=== PATIENT | male | born 1955 | race Caucasian/White ===

== ENCOUNTER → 2017-03-11 | Outpatient (CLI) | payer MEDICARE, MEDICAID ==
[~2017-03-11] MED LIST: AMITRIPTYLINE10 MG PO; ASPIRIN CHILDRE81 M1 PO; AUGMENTIN 875 M1 TAB PO; AUGMENTIN 875-1 EACH PO; BACTRIM DS 8001 TA1 PO; CETIRIZINE10 MG PO; GABAPENTIN100 M1 PO; LORTAB 5/500 501 TAB PO; LORTAB 500 MG-71 TAB PO; MELOXICAM15 MG PO; MUPIROCIN2% TP; PRAVACHOL 40MG40 MG PO; PRILOSEC OTC20 MG PO; PYRIDIUM 200MG200 MG PO; SEPTRA DS 800 M1 TAB PO; VITAMIN B12100 MC1 MM; VITAMIN B12500 MC1 MM; VOLTAREN75 MG PO; ZANTAC 150150 MG PO; ZYRTEC 10MG TAB10 MG PO
--- NOTE | 2017-03-11 13:42 | RADIOLOGY REPORT PS360 ---
CHEST(2 VIEWS-NOT PORTABLE) HISTORY: DIMINISHED BREATH SOUNDS ON LEFT SIDE,DYSPNEA ORDERING PHYSICIAN: Billy To MD PATIENT AGE: 62 years COMPARISON: None available FINDINGS: The cardiomediastinal silhouette and pulmonary vascularity are within normal limits. The lungs are clear without infiltrates, suspicious nodules, or pleural effusions. No acute bony abnormalities. IMPRESSION: Negative chest, no acute finding
== END ==
LOC: RAD 13:19
DX: R06.00 Dyspnea, unspecified (principal)